=== PATIENT | female | born 1940 | race Caucasian/White ===

== ENCOUNTER → 2019-10-08 | Day surgery (SDC) | payer OTHER ==
[2019-10-02 14:49] LABS: BASOPHILS # (AUTO) 0.1 (0.0-0.1); BASOPHILS % 0.7 % (0.0-1.0); EOSINOPHILS # (AUTO) 0.2 (0.0-0.4); EOSINOPHILS % 2.7 % (0.0-6.0); HEMATOCRIT 42.2 % (34.2-44.1); HEMOGLOBIN 13.6 g/dL (12.0-16.0); LYMPHOCYTES # (AUTO) 2.7 (1.0-3.2); LYMPHOCYTES % 34.7 % (18.0-39.1); MEAN CORPUSCULAR HGB CONC 32.2 g/dL (31-35); MEAN CORPUSCULAR VOLUME 83.7 fL (81-99); MONOCYTES # (AUTO) 0.5 (0.2-0.8); MONOCYTES % 6.6 % (4.4-11.3); NEUTROPHILS # (AUTO) 4.2 (2.1-6.9); NEUTROPHILS % 54.9 % (38.7-80.0); PLATELET COUNT 223 x10e3/uL (140-360); RED BLOOD COUNT 5.04 x10e6/uL (3.6-5.1)
[~2019-10-08] MED LIST: AMARYL1 MG PO; AMLODIPINE BESYL5 MG PO; CLONAZEPAM0.5 MG PO; CLONIDINE HCL0.2 MG PO; CLOPIDOGREL75 MG PO; CYCLOBENZAPRINE10 MG PO; FUROSEMIDE40 MG PO; GLIMEPIRIDE2 MG PO; HYDRALAZINE HCL50 MG PO; LOSARTAN POTASS25 MG PO; METOPROLOL TART50 MG PO; MONTELUKAST SOD10 MG PO; PRISTIQ50 M1; PROPOFOL IV EMULSION 10 MG/ML 20 ML VIAL ONE; RANITIDINE; RANITIDINE HCL75 MG PO; ROPINIROLE HCL1 MG PO; SIMVASTATIN20 MG PO; SPIRONOLACTONE25 MG PO; VENLAFAXINE HCL25 MG PO; VENLAFAXINE HCL75 MG PO; Z ROPINIROLE HCL; Z.0.HYDROCHLOROTHIA2; Z.0.OMEPRAZOLE20 M1; Z.0.PLAVIX75 MG; Z.0.SIMVASTATIN40 MG; Z.0.TOPROL XL50 MG; ZANTAC150 MG
[2019-10-08 09:55] VITALS: BP 141/60
== END | disposition home or self-care (01) ==
LOC: OR 05:50
PROVIDERS: ATTEND Internal Medicine Gastroenterology
DX: K52.9 Noninfective gastroenteritis and colitis, unspecified (principal); D12.3 Benign neoplasm of transverse colon; D12.5 Benign neoplasm of sigmoid colon; K57.30 Diverticulosis of large intestine without perforation or abscess without bleeding; K64.8 Other hemorrhoids; K21.9 Gastro-esophageal reflux disease without esophagitis; Z71.3 Dietary counseling and surveillance; G47.33 Obstructive sleep apnea (adult) (pediatric); E66.9 Obesity, unspecified; E11.9 Type 2 diabetes mellitus without complications; I10 Essential (primary) hypertension; M19.90 Unspecified osteoarthritis, unspecified site; I25.810 Atherosclerosis of coronary artery bypass graft(s) without angina pectoris; Z88.0 Allergy status to penicillin; Z88.6 Allergy status to analgesic agent; Z91.041 Radiographic dye allergy status; Z01.810 Encounter for preprocedural cardiovascular examination; Z01.812 Encounter for preprocedural laboratory examination; Z11.59 Encounter for screening for other viral diseases; Z79.84 Long term (current) use of oral hypoglycemic drugs; Z79.02 Long term (current) use of antithrombotics/antiplatelets; Z68.32 Body mass index [BMI] 32.0-32.9, adult; Z95.1 Presence of aortocoronary bypass graft
CPT/HCPCS: 36415 ×2; 45380; 45385; 82948; 85025; 88305; 93005; J2704; U0002; 45384